=== PATIENT | female | born 1990 | race Caucasian/White ===

== ENCOUNTER 2017-02-11 10:29 | Emergency (ER) | payer OTHER ==
[~2017-02-11] VITALS: Ht 170.2 cm; Wt 59.0 kg
[~2017-02-11 10:29] MED LIST: [UNRECOGNIZED DRUG - CODE]
[2017-02-11 10:51] VITALS: BP 116/63
--- NOTE | 2017-02-11 11:29 | NUR ---
Patient to bed 12.
--- NOTE | 2017-02-11 11:35 | NUR ---
PRESENT TO ER C/O LT ANKLE PAIN x YESTERDAY. PT STATES SHE TRIPPED AND FELL DENIES KO/LOC. HX: NONE MEDS: NONE . DENIES N/V/D; SKIN IS PINK/WARM/DRY; AAOX4 WITH EVEN AND STEADY GAIT; LUNGS CLEAR BL; HR EVEN AND REGULAR; PT DENIES ANY FEVER, CP, SOB, OR COUGH AT THIS TIME; PATIENT STATES PAIN OF 6/10 AT THIS TIME; VSS; PATIENT POSITIONED FOR COMFORT; HOB ELEVATED; BEDRAILS UP X2; BED DOWN. ER MD MADE AWARE OF PT STATUS.
[2017-02-11] MEDS ORDERED: IBUPROFEN 800 MG TAB PO ONE (11:45)
[2017-02-11 12:16] VITALS: BP 112/66
--- NOTE | 2017-02-11 12:16 | NUR ---
Patient discharged with v/s stable. Written and verbal after care instructions given and explained. Patient alert, oriented and verbalized understanding of instructions. Wheel Chair Assisted with to car. All questions addressed prior to discharge. ID band removed. Patient advised to follow up with PMD. Rx of MOTRIN given. Patient educated on indication of medication including possible reaction and side effects. Opportunity to ask questions provided and answered.
== END 2017-02-11 12:16 | disposition home or self-care (01) ==
LOC: MED 10:29
DX: S82.892A Other fracture of left lower leg, initial encounter for closed fracture (principal); Z79.899 Other long term (current) drug therapy; X58.XXXA Exposure to other specified factors, initial encounter; Y93.89 Activity, other specified; Y92.89 Other specified places as the place of occurrence of the external cause; Y99.8 Other external cause status
CPT/HCPCS: 29515; 73610; 99284